=== PATIENT | male | born 1955 | race Asian ===

== ENCOUNTER 2019-08-13 02:24 | Emergency (ER) | payer MEDICARE ==
[~2019-08-13] VITALS: Ht 167.6 cm; Wt 59.1 kg
[2019-08-13 03:21] LABS: APPEARANCE,URINE CLEAR (CLEAR); BILIRUBIN,URINE NEGATIVE (NEGATIVE); GLUCOSE, URINE (UA) NEGATIVE (NEGATIVE); KETONES,URINE NEGATIVE (NEGATIVE); LEUKOCYTE ESTERASE ,URINE NEGATIVE (NEGATIVE); NITRATE,URINE NEGATIVE (NEGATIVE); OCCULT BLOOD,URINE MODERATE (NEGATIVE); PH,URINE 6.5 (5.0-8.0); PROTEIN,URINE NEGATIVE (NEGATIVE); UROBILINOGEN,URINE 0.2 mg/dL (<=1.0)
[2019-08-13] MEDS ORDERED: TAMS-1 PO (03:27)
[2019-08-13] MEDS ORDERED: ASPI-1182 PO (03:27)
[2019-08-13] MEDS ORDERED: AMLO5TAB9 PO (03:27)
[2019-08-13 03:34] LABS: BACTERIA,URINE Rare /HPF (None Seen); SQUAMOUS EPITHELIAL CELL,UR Rare /LPF (None Seen); WBC,URINE 0-2 /HPF (0-5)
[2019-08-13 03:38] VITALS: BP 152/95
== END 2019-08-13 04:18 | disposition home or self-care (01) ==
LOC: EMS 02:25
DX: R33.9 Retention of urine, unspecified (principal); R39.198 Other difficulties with micturition; I10 Essential (primary) hypertension; Z79.899 Other long term (current) drug therapy
CPT/HCPCS: 51702

== ENCOUNTER 2019-08-13 12:23 | Emergency (ER) | payer MEDICARE ==
[~2019-08-13] VITALS: Ht 167.6 cm; Wt 65.9 kg
[~2019-08-13 12:23] MED LIST: AMLO5TAB9 PO; ASPI-1182 PO; TAMS-1 PO
[2019-08-13 14:54] VITALS: BP 139/84
== END 2019-08-13 15:24 | disposition home or self-care (01) ==
LOC: EMS 12:24
DX: R33.9 Retention of urine, unspecified (principal); I10 Essential (primary) hypertension

== ENCOUNTER 2019-08-16 07:49 | Emergency (ER) | payer MEDICARE ==
[~2019-08-16] VITALS: Ht 167.6 cm; Wt 59.1 kg
[2019-08-16 08:31] VITALS: BP 138/93
== END 2019-08-16 08:33 | disposition home or self-care (01) ==
LOC: EMS 07:50
DX: Z46.6 Encounter for fitting and adjustment of urinary device (principal); I10 Essential (primary) hypertension; Z79.82 Long term (current) use of aspirin

== ENCOUNTER 2020-02-04 06:28 | Emergency (ER) | payer MEDICARE ==
[~2020-02-04] VITALS: Ht 167.6 cm; Wt 59.1 kg
[~2020-02-04 06:28] MED LIST changes: +ASPI-1111 PO; -ASPI-1182 PO
[2020-02-04] MEDS ORDERED: ATOR20TA86 PO (06:56)
[2020-02-04 07:10] LABS: APPEARANCE,URINE CLEAR (CLEAR); BILIRUBIN,URINE NEGATIVE (NEGATIVE); GLUCOSE, URINE (UA) NEGATIVE (NEGATIVE); KETONES,URINE NEGATIVE (NEGATIVE); LEUKOCYTE ESTERASE ,URINE NEGATIVE (NEGATIVE); NITRATE,URINE NEGATIVE (NEGATIVE); OCCULT BLOOD,URINE SMALL (NEGATIVE); PROTEIN,URINE NEGATIVE (NEGATIVE); UROBILINOGEN,URINE 0.2 mg/dL (<=1.0)
[2020-02-04 07:46] LABS: BACTERIA,URINE None Seen /HPF (None Seen); RBC,URINE 0-2 /HPF (0-2); SQUAMOUS EPITHELIAL CELL,UR Few /LPF (None Seen); WBC,URINE None Seen /HPF (0-5)
[2020-02-04 09:14] VITALS: BP 133/81
== END 2020-02-04 09:14 | disposition home or self-care (01) ==
LOC: EMS 06:30
DX: R30.0 Dysuria (principal)

== ENCOUNTER 2020-02-04 12:07 | Emergency (ER) | payer MEDICARE ==
[~2020-02-04] VITALS: Ht 167.6 cm; Wt 59.1 kg
[~2020-02-04 12:07] MED LIST changes: +ATOR20TA86 PO
[2020-02-04 15:10] VITALS: BP 140/74
== END 2020-02-04 15:14 | disposition home or self-care (01) ==
LOC: EMS 12:08
DX: R33.9 Retention of urine, unspecified (principal); R35.0 Frequency of micturition; R30.0 Dysuria; E78.00 Pure hypercholesterolemia, unspecified; I10 Essential (primary) hypertension; Z79.899 Other long term (current) drug therapy; Z79.82 Long term (current) use of aspirin; Z98.890 Other specified postprocedural states
CPT/HCPCS: 51702

== ENCOUNTER 2020-02-06 10:08 | Emergency (ER) | payer MEDICARE ==
[~2020-02-06] VITALS: Ht 167.6 cm; Wt 60.0 kg
[2020-02-06 10:55] LABS: APPEARANCE,URINE CLOUDY (CLEAR); BILIRUBIN,URINE NEGATIVE (NEGATIVE); GLUCOSE, URINE (UA) NEGATIVE (NEGATIVE); KETONES,URINE NEGATIVE (NEGATIVE); LEUKOCYTE ESTERASE ,URINE SMALL (NEGATIVE); NITRATE,URINE NEGATIVE (NEGATIVE); OCCULT BLOOD,URINE LARGE (NEGATIVE); PROTEIN,URINE SEE CONFIRM (NEGATIVE)
[2020-02-06 11:04] LABS: BACTERIA,URINE Few /HPF (None Seen); RBC,URINE >100 /HPF (0-2); SULFOSALICYLIC ACID,URINE 3+ (Negative)
[2020-02-06 11:44] VITALS: BP 102/45
== END 2020-02-06 11:52 | disposition home or self-care (01) ==
LOC: EMS 10:10
DX: T83.098A Other mechanical complication of other urinary catheter, initial encounter (principal); R31.9 Hematuria, unspecified; R30.0 Dysuria; R33.9 Retention of urine, unspecified; E78.00 Pure hypercholesterolemia, unspecified; I10 Essential (primary) hypertension; Z79.899 Other long term (current) drug therapy; Z79.82 Long term (current) use of aspirin; Y73.2 Prosthetic and other implants, materials and accessory gastroenterology and urology devices associated with adverse incidents

== ENCOUNTER 2020-02-12 07:18 | Emergency (ER) | payer MEDICARE ==
[~2020-02-12] VITALS: Ht 167.6 cm; Wt 59.1 kg
[2020-02-12 08:44] VITALS: BP 147/93
== END 2020-02-12 09:16 | disposition home or self-care (01) ==
LOC: EMS 07:21
DX: Z46.6 Encounter for fitting and adjustment of urinary device (principal); I10 Essential (primary) hypertension; E78.00 Pure hypercholesterolemia, unspecified; Z79.82 Long term (current) use of aspirin

== ENCOUNTER 2020-02-12 19:23 | Emergency (ER) | payer MEDICARE ==
[~2020-02-12] VITALS: Ht 167.6 cm; Wt 59.1 kg
[2020-02-12 20:06] LABS: APPEARANCE,URINE CLEAR (CLEAR); BILIRUBIN,URINE NEGATIVE (NEGATIVE); GLUCOSE, URINE (UA) NEGATIVE (NEGATIVE); KETONES,URINE NEGATIVE (NEGATIVE); LEUKOCYTE ESTERASE ,URINE NEGATIVE (NEGATIVE); NITRATE,URINE NEGATIVE (NEGATIVE); OCCULT BLOOD,URINE MODERATE (NEGATIVE); PROTEIN,URINE NEGATIVE (NEGATIVE)
[2020-02-12 20:15] LABS: BACTERIA,URINE Rare /HPF (None Seen); WBC,URINE 0-2 /HPF (0-5)
[2020-02-12 20:16] LABS: SQUAMOUS EPITHELIAL CELL,UR Few /LPF (None Seen)
[2020-02-12] MEDS ORDERED: PHENAZOPYRIDINE HCL 100 MG TABLET PO ONE (20:45)
[2020-02-12 20:48] VITALS: BP 157/97
== END 2020-02-12 20:51 | disposition home or self-care (01) ==
LOC: EMS 19:24
DX: R30.0 Dysuria (principal); E78.00 Pure hypercholesterolemia, unspecified; I10 Essential (primary) hypertension; Z98.890 Other specified postprocedural states; Z79.82 Long term (current) use of aspirin; Z79.899 Other long term (current) drug therapy

== ENCOUNTER 2020-12-10 06:44 | Emergency (ER) | payer MEDICARE ==
[~2020-12-10] VITALS: Ht 167.6 cm; Wt 61.4 kg
[~2020-12-10 06:44] MED LIST changes: +AMLO-257 PO; -AMLO5TAB9 PO
[2020-12-10 07:38] LABS: BASOPHILS % (AUTO) 1.2 % (0.0-2.0); HEMATOCRIT 45.2 % (41-53); HEMOGLOBIN 14.4 g/dL (13.5-17.5); LYMPHOCYTES # (AUTO) 1.2 K/uL (1.0-4.8); MEAN CORPUSCULAR HEMOGLOBIN 28.3 pg (26.0-34.0); MEAN CORPUSCULAR HGB CONC 31.8 G/dL (31.0-37.0); MEAN CORPUSCULAR VOLUME 89 fL (80-100); MONOCYTES # (AUTO) 0.5 K/uL (0.1-1.0); MONOCYTES % (AUTO) 6.1 % (2.0-9.0); NEUTROPHILS % (AUTO) 78.7 % (40.0-70.0); PLATELET COUNT (AUTO) 539 K/uL (150-450); RED BLOOD CELL COUNT(AUTO) 5.09 MIL/uL (4.50-5.90); RED CELL DISTRIBUTION WIDTH 14.4 % (11.5-14.5)
[2020-12-10] MEDS ORDERED: ALBUTEROL SULFATE HFA 90 MCG/PUFF 8 GM INHALER IH ONE (07:45)
[2020-12-10 07:55] LABS: CALCIUM, TOTAL 8.8 mg/dL (8.8-10.5); CREATININE 1.28 mg/dL (0.60-1.30); POTASSIUM 4.5 mmol/L (3.5-5.1)
[2020-12-10 08:09] LABS: ALBUMIN 2.7 g/dL (3.4-5.0); BILIRUBIN,TOTAL 0.7 mg/dL (0.1-1.0); TOTAL PROTEIN, SERUM 7.9 g/dL (6.4-8.2)
[2020-12-10] MEDS ORDERED: AZITHROMYCIN 500 MG TABLET PO ONE (09:15)
[2020-12-10 09:23] VITALS: BP 119/77
== END 2020-12-10 09:35 | disposition home or self-care (01) ==
LOC: EMS 06:46
DX: U07.1 COVID-19 (principal); J12.82 Pneumonia due to coronavirus disease 2019; I10 Essential (primary) hypertension; E78.00 Pure hypercholesterolemia, unspecified; Z79.899 Other long term (current) drug therapy
CPT/HCPCS: 36415; 71045; 80053; 83880; 84484; 85025; 93005; 99285; U0003; J3535

== ENCOUNTER 2022-05-11 08:31 | Emergency (ER) | payer MEDICARE ==
[~2022-05-11] VITALS: Ht 167.6 cm; Wt 63.2 kg
[~2022-05-11 08:31] MED LIST changes: +ACET-784 PO; -ASPI-1111 PO; +ASPI-1444 PO; +CEFU250T87 PO; +DEXA6TAB7 PO; +DOXY-354 PO; +FAMO20 PO; +IPRA4AER IH
[2022-05-11] MEDS ORDERED: LIDOCAINE 5% TRANSDERMAL PATCH TD ONE (09:30)
[2022-05-11] MEDS ORDERED: ACETAMINOPHEN 325 MG TABLET PO ONE (09:30)
[2022-05-11 10:55] VITALS: BP 140/80
== END 2022-05-11 11:24 | disposition home or self-care (01) ==
LOC: EMS 08:33
DX: M25.511 Pain in right shoulder (principal); F10.20 Alcohol dependence, uncomplicated; E78.00 Pure hypercholesterolemia, unspecified; I10 Essential (primary) hypertension; Z87.438 Personal history of other diseases of male genital organs
CPT/HCPCS: 99283